=== PATIENT | female | born 1960 | race Hispanic/Latino ===

== ENCOUNTER → 2018-10-26 | Day surgery (SDC) | payer OTHER ==
[2018-10-25 15:26] LABS: BASOPHILS # (AUTO) 0.1 (0.0-0.1); BASOPHILS % 1.1 % (0.0-1.0); EOSINOPHILS # (AUTO) 0.1 (0.0-0.4); EOSINOPHILS % 2.4 % (0.0-6.0); HEMOGLOBIN 11.9 g/dL (12.0-16.0); LYMPHOCYTES # (AUTO) 1.8 (1.0-3.2); LYMPHOCYTES % 37.8 % (18.0-39.1); MEAN CORPUSCULAR HEMOGLOBIN 30.9 pg (28-32); MEAN CORPUSCULAR VOLUME 88.3 fL (81-99); MONOCYTES # (AUTO) 0.4 (0.2-0.8); MONOCYTES % 7.7 % (4.4-11.3); NEUTROPHILS # (AUTO) 2.4 (2.1-6.9); NEUTROPHILS % 50.6 % (38.7-80.0); PLATELET COUNT 294 x10e3/uL (140-360); RED BLOOD COUNT 3.85 x10e6/uL (3.6-5.1); RED CELL DISTRIBUTION WIDTH 12.4 % (11.7-14.4)
--- NOTE | 2018-10-25 15:53 | Diagnostic Imaging Report ---
EXAMINATION: PA and lateral views of the chest. COMPARISON: 12/24/2009 CLINICAL HISTORY: Preoperative study for left foot surgery DISCUSSION: Lines/tubes: None. Lungs: The lungs are well inflated and clear. There is no evidence of pneumonia or pulmonary edema. Pleura: There is no pleural effusion or pneumothorax. Heart and mediastinum: The cardiomediastinal silhouette is normal. Bones and soft tissues: No acute bony abnormalities. Bilateral breast implants. IMPRESSION: No acute cardiopulmonary abnormalities. Signed by: Dr. Anselmo Goodrich M.D. on 10/25/2018 3:50 PM
[~2018-10-26] MED LIST: ASPIR 8181 MG PO; BUPIVACAINE HCL 0.5% INJ 30 ML VIAL INJ ONE; CEFAZOLIN SOD 1 GM/NS 50ML 50 ML IV ONE; DEXAMETHASONE SOD PHOS INJ 4 MG/ML VIAL ONE; FENTANYL CITRATE/PF 100MCG/2 ML INJ ONE; KETOROLAC TROMETHAMINE 30 MG/ML VIAL ONE; LIDOCAINE HCL 2% LOCAL INJ 5 ML SDV VIAL INJ ONE; METOCLOPRAMIDE HCL 10 MG/2ML VIAL ONE; MIDAZOLAM HCL 2 MG/2 ML VIAL ONE; MOTRIN200 MG PO; ONDANSETRON HCL INJ 2MG/ML 2ML 2 MG/ML VIAL ONE; PROPOFOL IV EMULSION 10 MG/ML 20 ML VIAL ONE; SEVOFLURANE INHAL SOLN 250 ML PEN BTL ONE
--- OUTSIDE RECORDS SUMMARY | 2018-10-26 05:21 | XMS REPORT | Clinical Summary ---
Author Author [facility] Organization [facility] Address Unknown Phone Unavailable Care Team Providers Care Search Planner Name Role Phone Dwight Morgan MD PCP Allergies No Known Allergies Medications End Date Status Medication Sig Dispensed Refills Start Date Active venlafaxine XR 0 (EFFEXOR-XR) 75 MG 24 hr 6 capsule Active aspirin (ECOTRIN) 81 MG Take 81 mg by 3 enteric coated tablet mouth once 6 daily. Active lisinopril Take 2.5 mg 3 (PRINIVIL,ZESTRIL) 2.5 MG by mouth once 6 tablet daily. 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 Family History Medical History Relation Name Comments Colon cancer Father Heart disease Maternal Grandfather Heart disease Maternal Grandmother Diabetes Mother BODERLINE Diabetes Paternal Grandfather Lupus Sister Relation Name Status Comments Father Maternal Grandfather Maternal Grandmother Mother Paternal Grandfather Sister Social History Date Tobacco Use Types Packs/Day Years Used Never Smoker Alcohol Use Drinks/Week oz/Week Comments Yes SOCIAL / INFREQUENT Sex Assigned at Date Recorded Not on file Industry Job Start Date Occupation Not on file Not on file Not on file Travel End Travel History Travel Start No recent travel history available. Last Filed Vital Signs Not on file Plan of Treatment Health Maintenance Due Date Last Done Comments BREAST CANCER SCREENING 2011 COLON CANCER SCREENING 2011 SHINGLES VACCINES (#1) 2011 INFLUENZA VACCINE 01/04/2019 Results Not on fileafter 10/25/2017 Insurance Type Payer Benefit Subscriber ID Effective Phone Address Plan / Dates Group PPO AETNA AETNA PPO xxxxxxxxxx [id number] OPEN resent CHOICE Advance Directives Patient has advance care planning documents on file. For more information, ana e contact: Milan Gusman [address] [place] [id number]
--- OUTSIDE RECORDS SUMMARY | 2018-10-26 05:22 | XMS REPORT ---
[facility] Address Unknown Phone Unavailable Care Team Providers Care Warehouse Order Puller Name Role Phone Any BARONE Unavailable Unavailable Payers Payer Name Policy Type Policy Number Effective Date Expiration Date Problems This patient has no known problems. Allergies, Adverse Reactions, Alerts Allergy Name Allergy Type Status Severity Reaction(s) Onset Date Inactive Date Treating Clinician Comments No Known Contrast Allergies DA Active U 2005-09-23 00:00:00 No Known Drug Allergies DA Active U 2005-09-23 00:00:00 No Known Food Allergies DA Active U 2005-09-23 00:00:00 No Known Other Allergies DA Active U 2005-09-23 00:00:00 Medications This patient has no known medications. Results Test Description Test Time Test Comments Text Results Atomic Results Result Comments CHEST 2 VIEWS 2018-10-25 15:48:00 [place] [address] Patient Name: ALISHA PORTER MR #: [id number] : 1960 Age/Sex: 58/F Req #: [id number] Adm Physician: Ordered by: KEN BARONE DP Report #: [id number] Location: OR Room/Bed: Procedure: [id number] DX/CHEST 2 VIEWS Exam Date: 10/25/18 Exam Time: 1519 REPORT STATUS: Signed EXAMINATION: PA and lateral views of the chest. C OMPARISON: 12/24/2009 CLINICAL HISTORY: Preoperative study for left foot surgery DISCUSSION: Lines/tubes: None. Lungs: The lungs are well inflated and clear. There is no evidence of pneumonia or pulmonary edema. Pleura: There is no pleural effusion or pneumothorax. Heart and mediastinum: The cardiomediastinal silhouette is normal. Bones and soft tissues: No acute bony abnormalities. Bilateral breast implants. IMPRESSION: No acute cardiopulmonary abnormalities. Signed by: Dr. Abdiaziz Goncalves M.D. on 10/25/2018 3:50 PM Dictated By: ABDIAZIZ GONCALVES MD [id number] Transcribed By: COLLINS on 10/25/18 7840 COPY TO: KEN BARONE DPM
--- OUTSIDE RECORDS SUMMARY | 2018-10-26 05:22 | XMS REPORT | Encounter Summary ---
Author Organization Unknown Address [address] [place] [address] Phone [phone] Reason for Visit Left Medical Complaint Instructions 1. Shoulder pain shoulder pain: care instructions prednisone 10 mg tablets in a dose pack Discussion Note Pt is in NAD; Verbalizes understanding of all instructions with no questions at this time. Plan of Care Patient Instructions Recommend take tylenol over the counter for pain as per package insert. Take prednisone taper as directed. Recommend over the counter arm sling as needed. Recommend avoid extreneous exercise, avoid heavy lifting. Activity as tolerated. If worsening of symptoms follow up with PCP. In case of emergency call 911 or go to nearest ER. Reminders Provider Appointments None recorded. Lab None recorded. Referral None recorded. Procedures None recorded. Surgeries None recorded. Imaging None recorded. Medications Name Start Date aspirin 81 mg tablet,delayed release TAKE 1 TABLET BY MOUTH EVERY DAY Fluarix Quad [id number] (PF) 60 mcg (15 mcg x 4)/0.5 mL IM syringe TO BE ADMINISTERED BY PHARMACIST lisinopril 2.5 mg tablet TAKE 1 TABLET BY MOUTH EVERY DAY prednisone 10 mg tablets in a dose pack Take PO as directed Medications Administered None recorded. Vitals Height Weight BMI Blood Pressure 5 ft 2 in 120 lbs 21.9 kg/m2 116/74 mm[Hg] Lab Results None recorded. Allergies Code Code System Name Reaction Severity Status Onset NKDA Problems None recorded. Procedures Date Name Performed by 06/06/1984 Information not available Breast Augmentation Information not available Cholecystectomy Information not available Vaccine List None recorded. Social History Smoking Status Never Smoker Past Encounters 04/23/2017 Shoulder Pain Kamala Khalil, LANDSCAPE ARCHITECTURE PROFESSOR-C: [address] [place] [address], Ph. History of Present Illness Musculoskeletal Complaint Reported By: Patient HPI: Location: Location:. Quality: sharp, deep, intermittent. Severity: moderate (5-7), same, pain level 6-7/10. Duration: intermittent, present for 1-6 months. Onset/Timing: acute, gradual. Context: atraumatic. Alleviating factors: OTC medication, NSAIDS. Aggravating factors: lifting, twisting, pushing/pulling, weightbearing, movement/positioning. Associated Symptoms: no fever/chills, no warmth, no redness, no swelling, no drainage, no ecchymosis, no weakness, no tingling, no numbness, no radiation, no catching/locking, no popping/clicking, no buckling, no grinding, no instability, no weight loss, no change in bowel/bladder habits, no muscle aches, no headache Review of Systems:ROS as noted in the HPI Review of Systems Basic Reported By: Patient Physical Exam Adult Basic, Adult Female Complete, Adult Male Complete Reported By: Patient Constitutional: General Appearance: healthy-appearing, well-nourished, well-developed. Level of Distress: NAD. Ambulation: ambulating normally Psychiatric: Mental Status: active and alert. Orientation: to time, to place, to person Lungs: Respiratory effort: no dyspnea, no tachypnea, no use of accessory muscles, no intercostal retractions. Auscultation: breath sounds normal, good air movement Cardiovascular: Heart Auscultation: RRR, no murmurs. Pulses including femoral / pedal: normal throughout Musculoskeletal:: Motor Strength and Tone: normal motor strength, normal tone, normal. Joints, Bones, and Muscles: normal movement of all extremities, no bony abnormalities, no contractures, no malalignment, no tenderness. Extremities: no cyanosis, no edema, no varicosities, no palpable cord Neurologic: Gait and Station: normal gait, normal station. Cranial Nerves: grossly intact. Sensation: grossly intact. Reflexes: DTRs 2+ bilaterally throughout Back: Thoracolumbar Appearance: normal curvature
--- OUTSIDE RECORDS SUMMARY | 2018-10-26 05:22 | XMS REPORT | Continuity of Care Document ---
Author Author [facility] Interface Address Unknown Phone Unavailable Problems Problem Status Onset Date Classification Date Reported Comments Source Shoulder pain 04/23/2017 Diagnosis 04/23/2017 [facility] Medications Medication Details Route Status Patient Instructions Ordering Provider Order Date Source Aspirin 81 MG Delayed Release Oral Tablet aspirin 81 mg tablet,delayed release TAKE 1 TABLET BY MOUTH EVERY DAY Active [facility] Fluarix Quad (PF) 60 mcg (15 mcg x 4)/0.5 mL IM syringe Fluarix Quad (PF) 60 mcg (15 mcg x 4)/0.5 mL IM syringe TO BE ADMINISTERED BY PHARMACIST Active [facility] Lisinopril 2.5 MG Oral Tablet lisinopril 2.5 mg tablet TAKE 1 TABLET BY MOUTH EVERY DAY Active [facility] prednisone 10 mg tablets in a dose pack prednisone 10 mg tablets in a dose pack Take PO as directed Active [facility] Allergies, Adverse Reactions, Alerts Substance Category Reaction Severity Reaction type Status Date Reported Comments Source Immunizations Immunization Date Given Site Status Last Updated Comments Source Results Order Name Results Value Reference Range Date Interpretation Comments Source Vital Signs Vital Sign Value Date Comments Source Diastolic (mm Hg) 74 04/23/2017 [facility] Height 62 04/23/2017 [facility] Systolic (mm Hg) 116 04/23/2017 [facility] Weight 120 04/23/2017 [facility] Encounters Location Location Details Encounter Type Encounter Number Reason For Visit Attending Provider ADM Date DC Date Status Source [place] - [facility] - [id number]_IuvnterwAdan Khalil, SOCIAL ECONOMIST-C: [address] [place] [address], Ph. [id number] Kamala Khalil 04/23/2017 [facility] Procedures Procedure Code Date Perfomer Comments Source 06/06/1984 [facility] Breast Augmentation [facility] Cholecystectomy [facility]
--- NOTE | 2018-10-26 07:52 | Operative Report ---
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 PLANNED PROCEDURE: Left excision of second and third interspace neuroma. ANESTHESIA: General with a postoperative block consisting of 15 mL of 0.5% Marcaine plain mixed with 10 mL of dexamethasone phosphate. HEMOSTASIS: Pneumatic thigh tourniquet set at 350 mmHg for a total time of approximately 30 minutes. MATERIALS: 3-0 Vicryl, 4-0 Prolene. ESTIMATED BLOOD LOSS: Less than 10 mL. PATHOLOGY: None. PROCEDURE NOTE: The patient was seen in the preoperative waiting room where the correct procedure and site was identified. The patient was brought to the operating room, placed on the operating table in the supine position. General anesthesia was initiated. At this time, a well-padded pneumatic tourniquet was placed about the patient's left thigh. The left, foot, ankle, and leg was then scrubbed, prepped, and draped in the usual aseptic manner. The left foot, ankle, and leg was exsanguinated with an Esmarch bandage and the pneumatic thigh tourniquet was inflated to 350 mmHg for a total time of approximately 30 minutes. Attention was directed to the dorsal aspect of the patient's left foot, where a 4 cm linear incision was made directly over the third interspace. Incision was carried through subcutaneous tissue it from deep or underlying structures. All vital and neurovascular structures were identified and retracted medially and laterally and all bleeders were cauterized or ligated as deemed necessary. At this time, utilizing sharp and blunt dissection, the deep transverse metatarsal ligament was identified and cut with Littauer scissors and allowed for expansion of the interspace. It should be noted at this time the intermetatarsal nerve as well as a proper digital branches were easily identified and they were noted to be inflamed, tortuous, and enlarged at the trifurcation. The dissection was carried out distally to the proper digital branches of the intermetatarsal nerve cut, dissected proximally, pulled distally, cut at the most proximal and allowed to retract into the foot. The wound was then copiously irrigated with copious amounts of sterile saline. The deep transverse metatarsal ligament was left open. The subcutaneous tissue was reapproximated with 3-0 Vicryl and the skin was closed using a running interlocking stitch with 4-0 Prolene. Attention was directed now to the 2nd interspace where a second 4 cm linear incision made directly over the interspace. The incision was carried through the subcutaneous tissue them from deep or underlying structures. All vital and neurovascular structures were identified and retracted medially and laterally. All bleeders were cauterized or ligated as deemed necessary. With sharp and blunt dissection, the deep transverse metatarsal ligament was easily identified and utilizing Littauer scissors, was incised to allow for expansion of the interspace. It should be noted that the intermetatarsal nerve as well as the popliteal branches were easily identified. They were enlarged, tortuous and inflamed, but not to the degree of the third interspace. The dissection was carried distally to the proper digital branches where they were cut and then followed proximally along the intermetatarsal nerve where it was cut at the most proximal point and allowed to retract into the foot. The second interspace was then copiously irrigated with sterile saline mixed with bacitracin. The deep transverse metatarsal ligament was left open. Subcutaneous tissue was reapproximated with 3-0 Vicryl and the skin was reapproximated utilizing simple interlocking suture with 4-0 Prolene. The incision site was dressed with Adaptic, 4x4s, Kerlix, Chad wrap, and a postop shoe. The patient tolerated the procedure and anesthesia well. The patient was transferred to the postoperative recovery unit with vital signs stable and vascular status intact. The patient was monitored there for a short period time before being sent home with the following written and oral instructions. 1. Keep the dressing clean, dry, and intact. 2. The patient is to remain partial weightbearing in a postop shoe and crutches and to avoid excessive ambulation until being seen in the office. 3. The patient is given the office number ensure the contact us if any problems should arise. JAYASHREE Vines/DORA /[id number]
[2018-10-26 08:45] VITALS: BP 128/67
== END | disposition home or self-care (01) ==
LOC: OR 05:16
PROVIDERS: ATTEND Podiatrist Foot & Ankle Surgery
DX: G57.62 Lesion of plantar nerve, left lower limb (principal); Z01.810 Encounter for preprocedural cardiovascular examination; Z01.812 Encounter for preprocedural laboratory examination; Z01.818 Encounter for other preprocedural examination; Z79.82 Long term (current) use of aspirin
CPT/HCPCS: 28080 ×2; 36415; 71046; 85025; 93005; J0690; J1100; J1885; J2001; J2250; J2405; J2704; J2765